=== PATIENT | male | born 1955 | race Caucasian/White ===

== ENCOUNTER 2021-01-25 17:27 | Observation (INO) | payer MEDICARE, OTHER ==
[2021-01-25] MEDS ORDERED: FLUORESCEIN STRIPS 1 MG STRIP BOTH EYES ONE (19:37)
[2021-01-25] MEDS ORDERED: PROPARACAINE 0.5% OPHTH DROPS 15 ML BTL BOTH EYES STA (19:37)
[2021-01-25 20:20] LABS: Basophils # (A) 0.1 k/uL (0-0.2); Basophils % (A) 1 %; Eosinophils # (A) 0.1 k/uL (0-0.7); Eosinophils % (A) 2 %; HCT 41.9 % (39.0-53.0); HGB 14.4 gm/dL (13.0-17.5); Lymphocytes # (A) 1.6 k/uL (1.0-4.8); Lymphocytes % (A) 22 %; MCH 28.4 pg (25.0-35.0); MCHC 34.4 g/dL (31.0-37.0); MCV 82.5 fL (80.0-100.0); Monocytes # (A) 0.4 k/uL (0-1.0); Monocytes % (A) 5 %; Neutrophils # (A) 5.1 k/uL (1.3-7.7); Neutrophils % (A) 69 %; Platelet Count 179 k/uL (150-450); RBC 5.08 m/uL (4.30-5.90); RDW 12.8 % (11.5-15.5); WBC 7.4 k/uL (3.8-10.6)
[2021-01-25 20:31] LABS: ALT 8 U/L (4-49); AST 15 U/L (17-59); African American GFR (CKD) >90 (>60 ml/min/1.73 sqM); Albumin 4.3 g/dL (3.5-5.0); Alkaline Phosphatase 93 U/L (38-126); Anion Gap 9 mmol/L; Blood Urea Nitrogen 15 mg/dL (9-20); C Reactive Protein 0.7 mg/dL (<1.0); Calcium 9.1 mg/dL (8.4-10.2); Carbon Dioxide 25 mmol/L (22-30); Chloride 101 mmol/L (98-107); Glucose 404 mg/dL (74-99); Non-African American GFR(CKD) >90 (>60 ml/min/1.73 sqM); Potassium 4.5 mmol/L (3.5-5.1); Sodium 135 mmol/L (137-145); Total Bilirubin 0.5 mg/dL (0.2-1.3)
[2021-01-25] MEDS ORDERED: INSULIN ASPART (NovoLOG) 100 UNIT/ML VIAL SQ STA (20:43)
[2021-01-25] MEDS ORDERED: SODIUM CHLORIDE 0.9% 1,000 ML IV ONE (20:44)
[2021-01-25 21:27] LABS: Erythrocyte Sedimentation Rate 16 mm/hr (0-15)
[2021-01-25] MEDS ORDERED: KETOROLAC 15 MG/ML 1 ML VIAL IVP STA (22:46)
[2021-01-25] MEDS ORDERED: NALOXONE 0.4 MG/ML 1 ML VIAL IV PRN (22:51)
[2021-01-25] MEDS ORDERED: ACETAMINOPHEN TAB 325 MG TAB PO PRN (22:51)
[2021-01-25] MEDS ORDERED: KETOROLAC 15 MG/ML 1 ML VIAL IVP PRN (22:51)
--- NOTE | 2021-01-25 22:51 | ED ---
Recheck HPI - General Chief Complaint: Recheck/Abnormal Lab/Rx Stated Complaint: unable to see Time Seen by Provider: 01/25/21 19:08 Source: patient Mode of arrival: wheelchair Limitations: no limitations - History of Present Illness Initial Comments: 65 year-old male patient presents to the emergency department for evaluation of blurred vision. States symptoms started in the left eye two weeks ago and the right eye three days ago. States that everything is blurry. He is also reporting increase to his gneral joint pain. does have arthritis. Denies any recent head injury. States he was having some discomfort over the right [employer]ec[employer]ism with the blurred vision started but that has resolved. Denies any numbness, tingling, weakness to the extremities. Denies any facial droop or speech disturbance. Denies fever or chills. States his eye exam was quite some time ago. Does have a history of diabetes but does not take medication as the metformin made him sick. Patient denies any recent rash, cough, shortness of breath, chest pain, abdominal pain, nausea, vomiting, diarrhea, constipation, back pain, hematuria, dysuria, urinary urgency, urinary frequency, or any other complaints. - Related Data Home Medications Medication Instructions Recorded Confirmed Ibuprofen [Motrin Ib] 1,000 mg PO BID PRN 01/25/21 01/25/21 diphenhydrAMINE HCL [Benadryl] 150 mg PO DAILY PRN 01/25/21 01/25/21 Allergies Allergy/AdvReac Type Severity Reaction Status Date / Time No Known Allergies Allergy Unverified 01/25/21 22:08 Review of Systems ROS Statement: Those systems with pertinent positive or pertinent negative responses have been documented in the HPI. ROS Other: All systems not noted in ROS Statement are negative. Past Medical History Past Medical History: No Reported History History of Any Multi-Drug Resistant Organisms: None Reported Past Surgical History: Orthopedic Surgery Additional Past Surgical History / Comment(s): right above the knee amputation Past Psychological History: No Psychological Hx Reported Smoking Status: Never smoker Past Alcohol Use History: Occasional Past Drug Use History: None Reported General Exam Limitations: no limitations General appearance: alert, in no apparent distress, other (Physical well- developed, well-nourished adult male patient in no acute distress. Vital signs upon presentation are temperature 98.2F. Pulse 83, respirations 18, blood pressure 125/66, pulse ox 97% on room air.) Eye exam: Present: PERRL, EOMI, conjunctival injection (Right), other (F luorescein stain with Wood's lamp examination was performed showed no evidence for injury. IOP to the right eye was 18 mmHg, IOP to the left eye was 22 mmHg. ). Absent: normal appearance, scleral icterus, periorbital swelling Cardiovascular Exam: Present: regular rate, normal rhythm, normal heart sounds. Absent: systolic murmur, diastolic murmur, rubs, gallop, clicks GI/Abdominal exam: Present: soft, normal bowel sounds. Absent: distended, te nderness, guarding, rebound, rigid Neurological exam: Present: alert, oriented X3, CN II-XII intact Expanded Speech: Present: fluid speech Cranial nerves: EOM's Intact: Normal, Tongue Deviation: Normal Motor strength exam: RUE: 5, LUE: 5, LLE: 5 Psychiatric exam: Present: normal affect, normal mood Skin exam: Present: warm, dry, intact, normal color. Absent: rash Course Vital Signs 01/25/21 01/25/21 17:28 19:31 Temperature 98.0 F Pulse Rate 83 75 Respiratory 18 19 Rate Blood Pressure 125/66 107/62 O2 Sat by Pulse 97 97 Oximetry Medical Decision Making - Medical Decision Making 65-year-old male patient presents to the emergency department today for evaluation of blurred vision, joint pain. Physical examination was unremarkable. He is neurologically intact with no focal deficits. Did perform fluorescein stain with Wood's lamp examination to thighs as well as unremarkable. Intraocular pressures were normal. Labs reviewed and did reveal elevated blood sugar of 400. Patient was given insulin and IV fluids. To be admitted for hyperglycemia and uncontrolled diabetes. It is felt that his blur red vision could be related to this. He is agreeable with this plan. Case discussed with my attending Dr. Marshall. - Lab Data Result diagrams: 01/25/21 19:54 01/25/21 19:54 Lab Results 01/25/21 01/25/21 Range/Units 19:54 19:54 WBC 7.4 (3.8-10.6) k/uL RBC 5.08 (4.30-5.90) m/uL Hgb 14.4 (13.0-17.5) gm/dL Hct 41.9 (39.0-53.0) % MCV 82.5 (80.0-100.0) fL MCH 28.4 (25.0-35.0) pg MCHC 34.4 (31.0-37.0) g/dL RDW 12.8 (11.5-15.5) % Plt Count 179 (150-450) k/uL MPV 8.0 Neutrophils % 69 % Lymphocytes % 22 % Monocytes % 5 % Eosinophils % 2 % Basophils % 1 % Neutrophils # 5.1 (1.3-7.7) k/uL Lymphocytes # 1.6 (1.0-4.8) k/uL Monocytes # 0.4 (0-1.0) k/uL Eosinophils # 0.1 (0-0.7) k/uL Basophils # 0.1 (0-0.2) k/uL ESR 16 H (0-15) mm/hr Sodium 135 L (137-145) mmol/L Potassium 4.5 (3.5-5.1) mmol/L Chloride 101 (98-107) mmol/L Carbon Dioxide 25 (22-30) mmol/L Anion Gap 9 mmol/L BUN 15 (9-20) mg/dL Creatinine 0.77 (0.66-1.25) mg/dL Est GFR (CKD-EPI)AfAm >90 (>60 ml/min/1.73 sqM) Est GFR (CKD-EPI)NonAf >90 (>60 ml/min/1.73 sqM) Glucose 404 H (74-99) mg/dL Calcium 9.1 (8.4-10.2) mg/dL Total Bilirubin 0.5 (0.2-1.3) mg/dL AST 15 L (17-59) U/L ALT 8 (4-49) U/L Alkaline Phosphatase 93 (38-126) U/L C-Reactive Protein 0.7 (<1.0) mg/dL Total Protein 7.0 (6.3-8.2) g/dL Albumin 4.3 (3.5-5.0) g/dL Disposition Clinical Impression: Uncontrolled diabetes mellitus, Blurred vision Disposition: ADMITTED IP TO THIS [facility] Condition: Serious Referrals: None,Stated [Primary Care Provider] - 1-2 days Decision to Admit Reason: Admit from EC Decision Date: 01/25/21 Decision Time: 22:51
[2021-01-25] MEDS ORDERED: SODIUM CHLORIDE 0.9% 1,000 ML IV SCH (23:00)
[2021-01-25 23:10] LABS: Glucose,Whole Blood 198 mg/dL (75-99)
[2021-01-26 06:57] LABS: Glucose,Whole Blood 203 mg/dL (75-99)
[2021-01-26 08:06] VITALS: RESP 18
[2021-01-26] MEDS: INSULIN ASPART (NovoLOG) 100 UNIT/ML VIAL SQ SCH ×3 (08:21→17:21)
--- NOTE | 2021-01-26 11:01 | P.HPIM ---
History of Present Illness 65 year-old male patient presents to the emergency department for evaluation of blurred vision. States symptoms started in the left eye two weeks ago and the right eye three days ago. States that everything is blurry. Denies any recent head injury. States he was having some discomfort over the right restoration with the blurred vision started but that has resolved. Denies any numbness, tingling, weakness to the extremities. Denies any facial droop or speech disturbance. Denies fever or chills. States his eye exam was quite some time ago. Does have a history of diabetes but does not take medication as the metformin made him sick. Patient denies any recent rash, cough, shortness of breath, chest pain, abdominal pain, nausea, vomiting, diarrhea, constipation, back pain, hematuria, dysuria, urinary urgency, urinary frequency, or any other complaints. Patient is found to be hyperglycemic with blood sugars of 400. Patient was started on sliding scale given IV insulin after which his blood sugars have come down. I do not have any hemoglobin A1c available at this time. Patient can use to have a blurry vision. Patient doesn't have any weakness in the ocular muscles no other weakness or tingling numbness. No hearing problems. Review of Systems REVIEW OF SYSTEMS: CONSTITUTIONAL: No fever, no malaise, no fatigue. HEENT: No recent visual problems or hearing problems. Denied any sore throat. CARDIOVASCULAR: No chest pain, orthopnea, PND, no palpitations, no syncope. PULMONARY: No shortness of breath, no cough, no hemoptysis. GASTROINTESTINAL: No diarrhea, no nausea, no vomiting, no abdominal pain. NEUROLOGICAL: No headaches, no weakness, no numbness. HEMATOLOGICAL: Denies any bleeding or petechiae. GENITOURINARY: Denies any burning micturition, frequency, or urgency. MUSCULOSKELETAL/RHEUMATOLOGICAL: Denies any joint pain, swelling, or any muscle pain. ENDOCRINE: Patient does have a polyuria The rest of the 14-point review of systems is negative. Past Medical History Past Medical History: Diabetes Mellitus History of Any Multi-Drug Resistant Organisms: None Reported Past Surgical History: Orthopedic Surgery Additional Past Surgical History / Comment(s): right above the knee amputation Past Psychological History: No Psychological Hx Reported Smoking Status: Never smoker Past Alcohol Use History: Occasional Past Drug Use History: None Reported Medications and Allergies Home Medications Medication Instructions Recorded Confirmed Type Ibuprofen [Motrin Ib] 1,000 mg PO BID PRN 01/25/21 01/25/21 History diphenhydrAMINE HCL [Benadryl] 150 mg PO DAILY PRN 01/25/21 01/25/21 History glipiZIDE XL [Glucotrol XL] 10 mg PO DAILY #30 tab 01/26/21 Rx sitaGLIPtin [Januvia] 100 mg PO DAILY #100 tab 01/26/21 Rx Allergies Allergy/AdvReac Type Severity Reaction Status Date / Time No Known Allergies Allergy Unverified 01/25/21 22:08 Physical Exam Vitals: Vital Signs Temp Pulse Pulse Resp BP BP Pulse Ox 01/26/21 07:00 97.3 F L 65 18 115/68 94 L 01/26/21 02:00 98.7 F 67 17 97/58 96 01/25/21 23:45 98.6 F 70 17 96/67 96 01/25/21 23:07 72 19 101/75 97 01/25/21 19:31 75 19 107/62 97 01/25/21 17:28 98.0 F 83 18 125/66 97 Intake and Output 01/25/21 01/26/21 01/26/21 22:59 06:59 14:59 Intake Total 480 Balance 480 Intake: Oral 480 Other: Voiding Method Toilet # Voids 1 Weight 92.986 kg 92.986 kg PHYSICAL EXAMINATION: GENERAL: The patient is alert and oriented x3, not in any acute distress. Well developed, well nourished. HEENT: Pupils are round and equally reacting to light. EOMI. No scleral icterus. No conjunctival pallor. Normocephalic, atraumatic. No pharyngeal erythema. No thyromegaly. CARDIOVASCULAR: S1 and S2 present. No murmurs, rubs, or gallops. PULMONARY: Chest is clear to auscultation, no wheezing or crackles. ABDOMEN: Soft, nontender, nondistended, normoactive bowel sounds. No palpable organomegaly. MUSCULOSKELETAL: No joint swelling or deformity. EXTREMITIES: No cyanosis, clubbing, or pedal edema. Patient has tried to have bony amputation NEUROLOGICAL: Gross neurological examination did not reveal any focal deficits. Does have blurry vision SKIN: No rashes. Results CBC & Chem 7: 01/25/21 19:54 01/25/21 19:54 Labs: Abnormal Lab Results - Last 24 Hours (Table) 01/25/21 01/25/21 01/25/21 Range/Units 19:54 19:54 22:57 ESR 16 H (0-15) mm/hr Sodium 135 L (137-145) mmol/L Glucose 404 H (74-99) mg/dL POC Glucose (mg/dL) 198 H (75-99) mg/dL AST 15 L (17-59) U/L 01/26/21 Range/Units 06:56 ESR (0-15) mm/hr Sodium (137-145) mmol/L Glucose (74-99) mg/dL POC Glucose (mg/dL) 203 H (75-99) mg/dL AST (17-59) U/L Assessment and Plan Plan: -Blurry vision: Secondary to hyperglycemia patient doesn't have any other neuro deficits. Patient to visual problems are secondary to hyperglycemia will benefit from a evaluation by an supervisor lace tearing patient will be discharged to follow with supervisor lace tearing either today or Friday. -Type 2 diabetes mellitus uncontrolled elevated blood sugars secondary to noncompliance with medications and did not have any hemoglobin A1c patient blood sugars are very high up to 400 patient probably will need to hypoglycemic agents patient will be started on Januvia and glipizide. Patient didn't tolerate metformin did use it for 6 months with continuous diarrhea. Patient will need to check his blood sugars twice a day patient will be discharged to follow up with primary care physician and ophthalmology as an outpatient.
--- NOTE | 2021-01-26 11:01 | P.DS ---
Providers Date of admission: 01/25/21 22:58 Attending physician: Marli Mercado Primary care physician: Stated None Hospital Course: Please refer to HPI for further details Patient Condition at Discharge: Serious Plan - Discharge Summary New Discharge Prescriptions: New glipiZIDE XL [Glucotrol XL] 10 mg PO DAILY #30 tab sitaGLIPtin [Januvia] 100 mg PO DAILY #100 tab No Action Ibuprofen [Motrin Ib] 1,000 mg PO BID PRN PRN Reason: Pain diphenhydrAMINE HCL [Benadryl] 150 mg PO DAILY PRN PRN Reason: Eye Irritation Discharge Medication List Ibuprofen [Motrin Ib] 1,000 mg PO BID PRN 01/25/21 [History] diphenhydrAMINE HCL [Benadryl] 150 mg PO DAILY PRN 01/25/21 [History] glipiZIDE XL [Glucotrol XL] 10 mg PO DAILY #30 tab 01/26/21 [Rx] sitaGLIPtin [Januvia] 100 mg PO DAILY #100 tab 01/26/21 [Rx] Follow up Appointment(s)/Referral(s): [facility],Equipment [NON-STAFF] - 1 Week (Supplier of wheel chair cushion and blood sugar testing supplies) Joselo Carlos MD [REFERRING] - 02/07/21 1:15 pm (Dr Carlos is not accepting new patient at this time. Appointment made with Dr Ozzy Joseph for first available appointment. Insurance cards and drivers license needed and please wear a mask. ) Patient Instructions/Handouts: Type 2 Diabetes in the Older Adult (DC), Type 2 Diabetes Management for Adults (DC) Activity/Diet/Wound Care/Special Instructions: Diabetic diet check blood sugars twice a day before breakfast and before bed. Follow-up with [employer] certified [employer] professional either today or Friday
[2021-01-26 11:37] LABS: Glucose,Whole Blood 305 mg/dL (75-99)
--- NOTE | 2021-01-26 12:12 | P.PN ---
Progress Note - Text Progress Note Date: 01/26/21 Upon discharge patient will be requiring a wheelchair in order to be able to complete his ADLs which is unable to be done with the cane or walker due to continued weakness and [id number] amputation. Patient is able to propel himself. Patient is new onset diabetes and will require glucometer along with testing supplies and glucose testing 2 times daily as he is a [id number] diabetic. Prescriptions have been provided to case management.
[2021-01-26 13:21] VITALS: BMI 28.5
[2021-01-26 15:14] VITALS: BP 150/85; PULSE 77; TEMP 98.9
[2021-01-26 16:30] LABS: Hemoglobin A1C 14.9 % (4.0-6.0)
[2021-01-26 17:19] LABS: Glucose,Whole Blood 233 mg/dL (75-99)
== END 2021-01-26 17:45 | disposition home or self-care (01) ==
LOC: EC 17:27 → 6NMEDSUR 22:58
PROVIDERS: ADMIT Hospitalist; ATTEND Hospitalist
DX: E11.65 Type 2 diabetes mellitus with hyperglycemia (principal); Z91.14 Patient's other noncompliance with medication regimen; R53.1 Weakness; T38.3X6A Underdosing of insulin and oral hypoglycemic [antidiabetic] drugs, initial encounter; M19.90 Unspecified osteoarthritis, unspecified site; Z20.822 Contact with and (suspected) exposure to COVID-19; Z79.84 Long term (current) use of oral hypoglycemic drugs; Z89.611 Acquired absence of right leg above knee
CPT/HCPCS: 96376; 96374; 99284; 36415; 97161; 97165; 80053; 85652; 85025; 86140; 83036; 87635; G0378 ×2; J1885 ×2